=== PATIENT | male | born 1995 | race Caucasian/White ===

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

== ENCOUNTER 2021-06-14 11:04 | Emergency (ER) | payer BC | END 2021-06-14 12:08 | disposition home or self-care (01) | LOC: ER1 11:04 | DX: S91.14 Puncture wound with foreign body of toe without damage to nail (principal); W22.8XXA Striking against or struck by other objects, initial encounter | CPT/HCPCS: 10120; 99283 ==